=== PATIENT | male | born 1985 | race Caucasian/White ===

== ENCOUNTER 2022-02-05 08:54 | Observation (INO) ==
[2022-02-05] MEDS ORDERED: Lactated Ringers 1000 ml BAG 1,000 ML IV ONE (09:27)
[2022-02-05] MEDS ORDERED: Morphine 4 MG/ML VIAL (1 ml) IV ONE ×2 (09:27→10:15)
[2022-02-05 10:39] LABS: Albumin 4.3 g/dL (3.2-5.2); Calcium 9.8 mg/dL (8.6-10.3); Globulin 4.3 g/dL (2-4); Potassium 4.2 mmol/L (3.5-5.0); Total Protein 8.6 g/dL (6.4-8.9); eGFR CKD-EPI 115.3 (>60)
[2022-02-05] MEDS ORDERED: Iohexol 350 (CONTRAST) 500 ML MDV IV ONE (10:46)
[2022-02-05 10:49] LABS: ABS Basophils 0.1 10^3/ul (0-0.2); ABS Lymphocytes 2.8 10^3/ul (1.0-4.8); ABS Monocytes 1.2 10^3/ul (0-0.8); ABS Neutrophils 8.7 10^3/ul (1.5-7.7); Eosinophil % 0.3 %; Hematocrit 47 % (42-52); Hemoglobin 15.8 g/dL (14.0-18.0); Lymphocyte % 21.7 %; Mean Corpuscular HGB Conc 34 g/dL (31-36); Mean Corpuscular Hemoglobin 31 pg (27-31); Mean Corpuscular Volume 93 fL (80-94); Mean Platelet Volume 8.9 fL (7.4-10.4); Nucleated Red Blood Cells % 0.2; Platelet Count 230 10^3/uL (150-450); Red Blood Count 5.06 10^6 /uL (4.18-5.48); Red Cell Distribution Width 13 % (10-15); White Blood Count 12.8 10^3/uL (3.5-10.8)
[2022-02-05 11:36] LABS: High Sensitivity Troponin 1 Hr 4 pg/mL (<20)
[2022-02-05] MEDS ORDERED: Heparin DRIP 25,000 UNITS BAG 25,000 UNITS/500 ML BAG IV SCH (11:45)
[2022-02-05] MEDS ORDERED: Heparin 5000 UNITS/ML 1 mL VIAL IV SCH (12:00)
[2022-02-05] MEDS ORDERED: fentaNYL 100 mcg/2 ml 50 MCG/ML VIAL IV SLOW PU ONE (12:22)
[2022-02-05] MEDS ORDERED: Thiamine 100 MG/ML 2 ml VIAL (200 mg) IM ONE (14:14)
[2022-02-05] MEDS ORDERED: Morphine 2 MG/ML SYRINGE IV ONE (14:19)
[2022-02-05] MEDS ORDERED: LORazepam 2 mg VIAL 1 ml IV PUSH SCH (15:00)
[2022-02-05] MEDS ORDERED: Multivitamins/Minerals TAB PO SCH (15:00)
[2022-02-05] MEDS: Morphine ORAL.SOLN 10 mg 2 mg/ml UDC 5 ml (10 mg) PO PRN (21:02)
[2022-02-06] MEDS: Morphine ORAL.SOLN 10 mg 2 mg/ml UDC 5 ml (10 mg) PO PRN ×2 (01:40→06:20)
[2022-02-06 05:30] LABS: Hematocrit 41 % (42-52); Hemoglobin 13.8 g/dL (14.0-18.0); Mean Corpuscular HGB Conc 34 g/dL (31-36); Mean Corpuscular Hemoglobin 31 pg (27-31); Mean Corpuscular Volume 92 fL (80-94); Mean Platelet Volume 8.3 fL (7.4-10.4); Platelet Count 179 10^3/uL (150-450); Red Cell Distribution Width 13 % (10-15)
[2022-02-06] MEDS: Multivitamins/Minerals TAB PO SCH (07:37)
[2022-02-06] MEDS: PTO: Bictegravir/Emtricit/Tenofov 1 TABLET PO SCH (10:27)
[2022-02-06] MEDS ORDERED: fentaNYL 100 mcg/2 ml 50 MCG/ML VIAL IV SLOW PU ONE (13:09)
[2022-02-06] MEDS ORDERED: Morphine 2 MG/ML SYRINGE IV PRN (14:02)
[2022-02-06] MEDS: HYDROcodone/ACETAMIN 5/325 mg TAB PO PRN (17:25)
[2022-02-06] MEDS: Morphine 2 MG/ML SYRINGE IV PRN ×2 (19:59→22:20)
[2022-02-07] MEDS: HYDROcodone/ACETAMIN 5/325 mg TAB PO PRN ×2 (01:49→09:15)
[2022-02-07 06:18] LABS: Hematocrit 40 % (42-52); Hemoglobin 13.7 g/dL (14.0-18.0); Mean Corpuscular HGB Conc 34 g/dL (31-36); Mean Corpuscular Hemoglobin 31 pg (27-31); Mean Corpuscular Volume 92 fL (80-94); Mean Platelet Volume 8.2 fL (7.4-10.4); Platelet Count 188 10^3/uL (150-450); Red Blood Count 4.38 10^6 /uL (4.18-5.48); Red Cell Distribution Width 13 % (10-15); White Blood Count 9.5 10^3/uL (3.5-10.8)
[2022-02-07 07:03] LABS: Calcium 8.7 mg/dL (8.6-10.3); Potassium 4.1 mmol/L (3.5-5.0); eGFR CKD-EPI 118.5 (>60)
[2022-02-07] MEDS: Multivitamins/Minerals TAB PO SCH (08:31)
[2022-02-07] MEDS: PTO: Bictegravir/Emtricit/Tenofov 1 TABLET PO SCH (09:15)
[2022-02-07 14:08] VITALS: BP 131/73
[2022-02-08 10:21] LABS: % CD3 83 % (58-86); % CD4 42 % (32-64); % CD8 40 % (15-40); Absolute CD45 Count 1.44 thou/mcL (0.82-2.84); CD3 1197 cells/mcL (550-2202); CD4 599 cells/mcL (365-1437); CD8 577 cells/mcL (171-846)
== END 2022-02-07 17:00 | disposition home or self-care (01) ==
LOC: EDHOLD 08:54 → ED 08:54 → MEDTELE 17:31
PROVIDERS: ADMIT Internal Medicine; ATTEND Internal Medicine

== ENCOUNTER 2024-05-21 01:28 | Observation (INO) ==
[2024-05-21] MEDS ORDERED: Lorazepam PYXIS KEY PRN ×4 (01:51→05:43)
[2024-05-21] MEDS: LORazepam 2 mg VIAL 1 ml IV PUSH ONE ×4 (01:56→06:08)
[2024-05-21] MEDS: Lactated Ringers 1000 ml BAG 1,000 ML IV ONE (02:14)
[2024-05-21 02:15] LABS: ABS Basophils 0.1 10^3/uL (0.0-0.1); ABS Eosinophils 0.1 10^3/uL (0.0-0.5); ABS Lymphocytes 3.6 10^3/uL (1.0-4.8); ABS Monocytes 1.1 10^3/uL (0.0-1.1); ABS Nucleated RBC 0.01 10^3/ul; Hemoglobin 18.2 g/dL (13.2-16.3); Lymphocyte % 30.1 %; Mean Corpuscular Hemoglobin 32.7 pg (27-33); Mean Corpuscular Hgb Conc 35.1 g/dL (31-36); Mean Corpuscular Volume 93.1 fL (80-97); Nucleated Red Blood Cells % 0.1 %/100WBC (0.0-0.8); Platelet Count 280 10^3/uL (150-450); Red Blood Count 5.58 10^6/uL (4.06-5.63); Red Cell Distribution Width 13.5 % (12-17); White Blood Count 11.9 10^3/uL (3.6-10.2)
[2024-05-21 02:41] LABS: High Sens Troponin Baseline < 3 pg/mL (<20)
[2024-05-21 03:28] LABS: ALT 26 U/L (7-52); Albumin 4.7 g/dL (3.5-5.7); Albumin/Globulin Ratio 1.1 (1-3); Alkaline Phosphatase 101 U/L (35-149); Anion Gap 13 mmol/L (2-16); Blood Urea Nitrogen 13 mg/dL (6-24); CO2 Carbon Dioxide 28 mmol/L (22-32); Calcium 9.8 mg/dL (8.6-10.3); Chloride 98 mmol/L (101-111); Creatinine, Serum 1.13 mg/dL (0.67-1.17); Globulin 4.1 g/dL (2-4); Glucose 111 mg/dL (70-100); Sodium 139 mmol/L (135-145); Total Bilirubin 0.4 mg/dL (0.2-1.0); Total Protein 8.8 g/dL (6.4-8.9); eGFR CKD-EPI 84.3 (>60)
[2024-05-21 03:59] LABS: T4, Total 10.27 mcg/dL (6.09-12.23)
[2024-05-21 04:00] LABS: High Sensitivity Troponin 1 Hr < 3 pg/mL (<20)
[2024-05-21 04:02] LABS: TSH Ultra Thyroid Stim Horm 2.28 mcIU/mL (0.34-5.60)
[2024-05-21 04:57] LABS: Potassium Redraw 4.4 mmol/L (3.5-5.0)
[2024-05-21] MEDS ORDERED: Ondansetron 4 mg VIAL 2 MG/ML 2 ml VIAL IV PRN (06:20)
[2024-05-21] MEDS ORDERED: Polyethylene Glycol 3350 17 GM PACKET PO PRN (06:20)
[2024-05-21] MEDS ORDERED: Al Hydrox/Mg Hydrox/Simet LIQ 30 ML UDC PO PRN (06:20)
[2024-05-21] MEDS ORDERED: Nicotine Lozenge mini 4 MG LOZNG.MINI MT PRN (06:29)
[2024-05-21] MEDS ORDERED: LORazepam 2 mg VIAL 1 ml IV PUSH SCH (07:00)
[2024-05-21 07:11] LABS: HIV 4th Generation Preliminary Reactive (Nonreactive)
[2024-05-21] MEDS: Nicotine PATCH 21 MG/24 HR PATCH TRANSDERM SCH (07:32)
[2024-05-21 07:54] LABS: ABS Eosinophils 0.1 10^3/uL (0.0-0.5); ABS Monocytes 0.7 10^3/uL (0.0-1.1); ABS Neutrophils 3.6 10^3/uL (1.5-7.6); ABS Nucleated RBC 0.01 10^3/ul; Eosinophil % 1.2 %; Hematocrit 43.7 % (38-53); Hemoglobin 15.3 g/dL (13.2-16.3); Lymphocyte % 30.9 %; Mean Corpuscular Hemoglobin 32.4 pg (27-33); Mean Corpuscular Hgb Conc 35.1 g/dL (31-36); Mean Corpuscular Volume 92.2 fL (80-97); Mean Platelet Volume 8.2 fL (7.5-11.2); Nucleated Red Blood Cells % 0.1 %/100WBC (0.0-0.8); Platelet Count 195 10^3/uL (150-450); Red Blood Count 4.74 10^6/uL (4.06-5.63); Red Cell Distribution Width 13.1 % (12-17); White Blood Count 6.4 10^3/uL (3.6-10.2)
[2024-05-21 08:56] LABS: Calcium 8.5 mg/dL (8.6-10.3); Creatinine, Serum 0.8 mg/dL (0.67-1.17); Potassium 3.9 mmol/L (3.5-5.0); eGFR CKD-EPI 114.7 (>60)
[2024-05-21] MEDS: NF:Bictegravir/Emtricit/Tenofov 1 TABLET PO SCH (09:13)
[2024-05-21] MEDS: Enoxaparin 40 MG/0.4 ML SYR SUBCUT SCH (09:13)
[2024-05-21] MEDS: Multivitamins/Minerals TAB PO SCH (09:13)
[2024-05-21 13:54] VITALS: BP 129/86
[2024-05-24 12:38] LABS: HIV-1 Ab Differentiation,P Positive (Negative); HIV-2 Ab Differentiation,P Negative (Negative)
[2024-05-25 13:30] LABS: HIV-1 RNA (PCR) 313 copies/mL (Undetected)
== END 2024-05-21 17:15 | disposition home or self-care (01) ==
LOC: ED 01:28 → EDHOLD 01:28 → MED 09:12
PROVIDERS: ADMIT Internal Medicine; ATTEND Student in an Organized Health Care Education/Training Program